=== PATIENT | female | born 1935 | race African-American/Black ===

== ENCOUNTER 2017-02-26 03:03 | Emergency (ER) | payer MEDICARE, MEDICAID ==
[~2017-02-26] VITALS: Ht 167.6 cm; Wt 59.0 kg
[~2017-02-26 03:03] MED LIST: AMLO10TA80; CLON0.1T14 PO; Capsaicin TOP
[2017-02-26] MEDS ORDERED: ACETAMINOPHEN 325MG TABLET PO ONE (03:30)
[2017-02-26] MEDS ORDERED: IBUPROFEN 600MG TABLET PO ONE (04:45)
[2017-02-26 06:31] VITALS: BP 100/66
== END 2017-02-26 07:04 | disposition home or self-care (01) ==
LOC: ER 03:10
DX: M25.532 Pain in left wrist (principal); M79.602 Pain in left arm; I10 Essential (primary) hypertension; R44.2 Other hallucinations; W18.39XA Other fall on same level, initial encounter; Y93.89 Activity, other specified; Y92.89 Other specified places as the place of occurrence of the external cause; Y99.8 Other external cause status; Z98.890 Other specified postprocedural states
CPT/HCPCS: 29125; 70450; 72125; 73030; 73060; 73110; 93005; 99284

== ENCOUNTER 2017-08-07 06:32 | Observation (INO) | payer MEDICARE, MEDICAID ==
[~2017-08-07] VITALS: Ht 162.6 cm; Wt 66.8 kg
[~2017-08-07 06:32] MED LIST changes: -AMLO10TA80; +AMLO10TA80 PO; -CLON0.1T14 PO; +CLON0.2T PO; +IBUP-2030 PO
[2017-08-07] MEDS ORDERED: ASPIRIN 81MG TABLET PO STA (07:00)
[2017-08-07] MEDS ORDERED: ONDANSETRON HCL 4MG/2ML VIAL IV STA (07:00)
[2017-08-07] MEDS: NITROGLYCERIN 0.4MG TABLET SL SL PRN ×3 (07:17→07:32)
[2017-08-07 07:29] LABS: BASOPHILS % 0.6 % (0.0-2.0); EOSINOPHILS % 4.3 % (0.0-5.0); HEMATOCRIT. 30.3 % (36.0-48.0); HEMOGLOBIN. 10.3 g/dL (12.0-16.0); LYMPHOCYTES % 44.6 % (20.0-50.0); MEAN CORPUSCULAR HEMOGLOBIN 29.9 pg (28.0-32.0); MEAN CORPUSCULAR VOLUME 87.9 fL (81.0-99.0); MEAN PLATELET VOLUME 8.3 fl (7.4-10.4); MONOCYTES % 10.4 % (2.0-8.0); NEUTROPHILS % 40.1 % (40.0-76.0); PLATELET 215 x1000/uL (130-400); RED BLOOD CELL COUNT 3.45 mill/uL (4.2-5.4); RED CELL DISTRIBUTION WIDTH 15.3 % (11.6-14.6)
[2017-08-07 07:36] LABS: PROTHROMBIN TIME 10.5 sec (9.4-11.6)
[2017-08-07 07:43] LABS: CARBON DIOXIDE 27 mEq/L (21-32); CHLORIDE 99 mEq/L (98-107); TROPONIN I < 0.02 ng/mL (0.00-0.04)
[2017-08-07] MEDS ORDERED: ACETAMINOPHEN 325MG TABLET PO PRN (09:15)
[2017-08-07] MEDS ORDERED: IBUPROFEN 800MG TABLET PO SCH (09:15)
[2017-08-07 12:00] VITALS: BP 172/80
[2017-08-07] MEDS ORDERED: IBUPROFEN 800MG TABLET PO PRN (12:45)
[2017-08-07] MEDS ORDERED: ENOXAPARIN 40MG/0.4ML SYR SUBCUT SCH (13:00)
[2017-08-07 13:52] VITALS: BP 172/80
[2017-08-07] MEDS ORDERED: SODIUM CHLORIDE 0.9% INJ 3ML FLUSH IVF SCH (14:00)
[2017-08-07] MEDS ORDERED: CLONIDINE 0.2MG TABLET PO SCH (14:00)
[2017-08-07 14:30] VITALS: BP 190/83
[2017-08-07 14:34] VITALS: BP 191/91
[2017-08-07] MEDS ORDERED: AMLODIPINE 10MG TABLET PO SCH (14:45)
[2017-08-07] MEDS ORDERED: HYDRALAZINE 20MG/ML VIAL IV NR (15:20)
[2017-08-07] MEDS ORDERED: CLONIDINE 0.2MG TABLET PO NR (15:23)
[2017-08-07 15:27] VITALS: BP 193/97
[2017-08-07 15:50] VITALS: BP 191/91
[2017-08-08] MEDS ORDERED: AMLODIPINE 10MG TABLET PO SCH (09:00)
== END 2017-08-07 16:19 | disposition home or self-care (01) ==
LOC: ER 07:53 → EDBEDREQ 09:14 → ENRESERV 11:06 → 5WST 11:17 → INTOOBSV 11:17
PROVIDERS: ADMIT Ophthalmology; ATTEND Ophthalmology
DX: R07.89 Other chest pain (principal); I10 Essential (primary) hypertension; K21.9 Gastro-esophageal reflux disease without esophagitis; M19.90 Unspecified osteoarthritis, unspecified site; H40.9 Unspecified glaucoma; R06.02 Shortness of breath; R11.0 Nausea
CPT/HCPCS: 36415; 71010; 80053; 80061; 83605; 83690; 83880; 84484; 85025; 85610; 85730; 93005; 96372; 96374; 99285; G0378; J1650; J2405

== ENCOUNTER 2017-12-23 17:18 | Emergency (ER) | payer MEDICARE, MEDICAID ==
[~2017-12-23] VITALS: Ht 167.6 cm; Wt 52.0 kg
[2017-12-23] MEDS ORDERED: ONDANSETRON HCL 4MG/2ML VIAL IV STA (18:00)
[2017-12-23] MEDS ORDERED: MORPHINE SULFATE 4 MG/ML CPJ (NOT FOR IM USE) IV STA (18:00)
[2017-12-23 18:50] LABS: BASOPHILS % 0.9 % (0.0-2.0); EOSINOPHILS % 0.7 % (0.0-5.0); HEMATOCRIT. 34.7 % (36.0-48.0); HEMOGLOBIN. 11.5 g/dL (12.0-16.0); LYMPHOCYTES % 22.7 % (20.0-50.0); MEAN CORPUSCULAR HEMOGLOBIN 30.3 pg (28.0-32.0); MEAN CORPUSCULAR VOLUME 91.1 fL (81.0-99.0); MEAN PLATELET VOLUME 8.3 fl (7.4-10.4); MONOCYTES % 9.6 % (2.0-8.0); NEUTROPHILS % 66.1 % (40.0-76.0); PLATELET 245 x1000/uL (130-400); RED CELL DISTRIBUTION WIDTH 14.1 % (11.6-14.6)
[2017-12-23 18:57] LABS: PROTHROMBIN TIME 10.7 sec (9.4-11.6)
[2017-12-23 19:01] LABS: CHLORIDE 103 mEq/L (98-107)
[2017-12-23 19:08] LABS: TROPONIN I 0.08 ng/mL (0.00-0.04)
[2017-12-23 21:33] LABS: CLARITY URINE CLEAR (CLEAR); COLOR URINE YELLOW (YELLOW); KETONES URINE NEGATIVE (NEGATIVE); LEUKOCYTE ESTERASE URINE 1+ (NEGATIVE); NITRITE URINE NEGATIVE (NEGATIVE); OCCULT BLOOD URINE NEGATIVE (NEGATIVE); PH URINE 5.5 (4.5-8.0); PROTEIN URINE NEGATIVE (NEGATIVE); UROBILINOGEN URINE 0.2 E.U./dL (0.2-1.0)
[2017-12-23] MEDS ORDERED: HYDRALAZINE 20MG/ML VIAL IV NR (23:00)
[2017-12-24 00:09] VITALS: BP 159/101
== END 2017-12-24 00:13 | disposition home or self-care (01) ==
LOC: ER 18:00
DX: M54.2 Cervicalgia (principal); N39.0 Urinary tract infection, site not specified; M25.511 Pain in right shoulder; M25.562 Pain in left knee; M54.9 Dorsalgia, unspecified; E78.00 Pure hypercholesterolemia, unspecified; I10 Essential (primary) hypertension; M19.90 Unspecified osteoarthritis, unspecified site; R51 Headache; Z79.899 Other long term (current) drug therapy
CPT/HCPCS: 36415; 70450; 71045; 72125; 73030; 73562; 80053; 81003; 83880; 84484; 85025; 85610; 93005; 96374; 96375; 99285; J0360; J2270; J2405

== ENCOUNTER 2019-08-23 19:33 | Inpatient (IN) | payer MEDICARE, MEDICAID ==
[~2019-08-23] VITALS: Ht 167.6 cm; Wt 63.0 kg
[2019-08-23] MEDS ORDERED: ONDANSETRON HCL 4MG/2ML INJ IV STA (21:30)
[2019-08-23] MEDS ORDERED: SODIUM CHLORIDE 0.9% 1,000 ML IV ONE (21:30)
[2019-08-23 23:10] LABS: HEMATOCRIT. 38.7 % (36.0-48.0); MEAN CORPUSCULAR HEMOGLOBIN 30.8 pg (28.0-32.0); MEAN PLATELET VOLUME 8.8 fl (7.4-10.4); PLATELET 242 x1000/uL (130-400); RED BLOOD CELL COUNT 4.21 mill/uL (4.2-5.4); RED CELL DISTRIBUTION WIDTH 13.3 % (11.6-14.6)
[2019-08-23 23:14] LABS: CHLORIDE 102 mEq/L (98-107)
[2019-08-23 23:22] LABS: PLATELET ESTIMATE NORMAL
[2019-08-24] MEDS ORDERED: AZITHROMYCIN 500 MG in DEXT 5% WATER 250 ML IV SCH ×2
[2019-08-24] MEDS ORDERED: CEFTRIAXONE 1 G PREMIX 50 ML IV SCH ×2 (00:30)
[2019-08-24] MEDS ORDERED: SODIUM CHLORIDE 0.9% 1000ML BAG (SEPSIS BOLUS) IV ONE (03:45)
[2019-08-24] MEDS ORDERED: MORPHINE SULFATE 4 MG/ML CPJ (NOT FOR IM USE) IV ONE ×2 (03:45→05:45)
[2019-08-24] MEDS ORDERED: FUROSEMIDE 40MG/4ML VIAL IVP ONE (06:30)
[2019-08-24] MEDS ORDERED: LABETALOL 5MG/ML SYR 20 MG/4 ML SYRINGE IV ONE (08:30)
[2019-08-24 10:00] VITALS: BP 154/97
[2019-08-24 12:00] VITALS: BP 175/103
[2019-08-24] MEDS ORDERED: INFLUENZA VIRUS VACCINE(AFLURIA) 0.5ML SYR IM ONE (12:00)
[2019-08-24] MEDS ORDERED: NA PHOS,M-B/NA PHOS,DI-BA ENEMA 118ML PR PRN (12:45)
[2019-08-24] MEDS ORDERED: DOCUSATE SODIUM 100MG CAPSULE PO PRN (12:45)
[2019-08-24] MEDS ORDERED: DEXTROSE 50% WATER 50ML SYRINGE IV PRN (12:45)
[2019-08-24] MEDS ORDERED: CLONIDINE 0.1MG TABLET PO PRN (12:45)
[2019-08-24] MEDS ORDERED: ACETAMINOPHEN 325MG TABLET PO PRN (12:45)
[2019-08-24] MEDS ORDERED: ACETAMINOPHEN 650MG SUPP PR PRN (12:45)
[2019-08-24] MEDS ORDERED: GUAIFENESIN 200MG/10ML SUGAR FREE UDC PO PRN (12:45)
[2019-08-24] MEDS ORDERED: ONDANSETRON HCL 4MG/2ML INJ IV PRN (12:45)
[2019-08-24] MEDS ORDERED: LORAZEPAM 0.5MG TABLET PO PRN (12:45)
[2019-08-24] MEDS ORDERED: MAGNESIUM/ALUMINUM HYDROXIDE/SIMETHICONE 30ML UDC PO PRN (12:45)
[2019-08-24] MEDS ORDERED: IPRATROPIUM/ALBUTEROL 0.5-3(2.5)MG/3ML NEB NEB PRN (12:45)
[2019-08-24] MEDS ORDERED: DIPHENHYDRAMINE 50MG/ML VIAL IV PRN (12:45)
[2019-08-24] MEDS: BLOOD SUGAR DIAGNOSTIC STRIP TEST SCH ×3 (13:01→21:10)
[2019-08-24] MEDS: INSULIN LISPRO 100 UNITS/ML SUBCUT SCH ×3 (13:02→21:00)
[2019-08-24] MEDS: HYDRALAZINE 20MG/ML VIAL IV PRN ×2 (13:17→21:10)
[2019-08-24 14:25] LABS: *AMPHETAMINES SCREEN URINE NEGATIVE (NEGATIVE); *BARBITURATES SCREEN URINE NEGATIVE (NEGATIVE); *BENZODIAZEPINES SCREEN URINE NEGATIVE (NEGATIVE); *COCAINE SCREEN URINE NEGATIVE (NEGATIVE); CANNABINOID URINE SCREEN NEGATIVE (NEGATIVE); PHENCYCLIDINE URINE SCREEN NEGATIVE (NEGATIVE)
[2019-08-24 14:26] LABS: METHADONE URINE SCREEN NEGATIVE (NEGATIVE); OPIATES URINE SCREEN NEGATIVE (NEGATIVE)
[2019-08-24 15:00] LABS: BG BASE EXCESS -2.5 mmol/L (-2.0-2.0); BG CARBOXYHEMOGLOBIN 0.6 % (0.5-1.5); BG DEOXYHEMOGLOBIN 9.5 % (0.0-5.0); BG HCO3 ACT 21.3 mmol/L (22.0-26.0); BG METHEMOGLOBIN 0.1 % (0.0-1.5); BG OXYGEN SATURATION 90.4 % (92.0-98.5); BG OXYHEMOGLOBIN 89.8 % (94.0-97.0); BG PCO2 33.6 mmHg (35.0-45.0); BG PH 7.419 (7.350-7.450); BG PO2 56.5 mmHg (75.0-100.0); BG SAMPLE SITE RIGHT BRACHIAL; BG TOTAL HEMOGLOBIN 13.1 g/dL (12.0-18.0); BG VENT MODE ROOM AIR
[2019-08-24] MEDS ORDERED: POTASSIUM CHLORIDE INJ 40 MEQ in DEXT 5% WATER 250 ML IV SCH (15:00)
[2019-08-24] MEDS ORDERED: FAMOTIDINE 20MG/2ML VIAL IV SCH (15:30)
[2019-08-24 16:00] VITALS: BP 155/84
[2019-08-24 16:31] LABS: CLARITY URINE CLEAR (CLEAR); COLOR URINE YELLOW (YELLOW); KETONES URINE NEGATIVE (NEGATIVE); LEUKOCYTE ESTERASE URINE NEGATIVE (NEGATIVE); NITRITE URINE NEGATIVE (NEGATIVE); OCCULT BLOOD URINE 3+ (NEGATIVE); PROTEIN URINE TRACE (NEGATIVE); SPECIFIC GRAVITY URINE 1.011 (1.005-1.030); UROBILINOGEN URINE 0.2 E.U./dL (0.2-1.0)
[2019-08-24] MEDS: SODIUM CHLORIDE 0.9% 1,000 ML IV SCH (16:50)
[2019-08-24] MEDS: CEFTRIAXONE 1 G PREMIX 50 ML IV SCH (17:08)
[2019-08-24 20:00] VITALS: BP 174/89
[2019-08-24] MEDS: FAMOTIDINE 20MG/2ML VIAL IV SCH (21:10)
[2019-08-25] VITALS: BP 149/72
[2019-08-25 00:48] LABS: CREATINE KINASE MB FRACTION 2.3 ng/mL (0.5-3.6)
[2019-08-25 04:00] VITALS: BP 146/74
[2019-08-25 07:12] LABS: BASOPHILS % 0.4 % (0.0-2.0); EOSINOPHILS % 0.2 % (0.0-5.0); HEMATOCRIT. 34.5 % (36.0-48.0); HEMOGLOBIN. 11.6 g/dL (12.0-16.0); LYMPHOCYTES % 8.5 % (20.0-50.0); MEAN CORPUSCULAR HEMOGLOBIN 30.6 pg (28.0-32.0); MEAN CORPUSCULAR VOLUME 91.4 fL (81.0-99.0); MEAN PLATELET VOLUME 8.6 fl (7.4-10.4); MONOCYTES % 9.8 % (2.0-8.0); NEUTROPHILS % 81.1 % (40.0-76.0); PLATELET 209 x1000/uL (130-400); RED BLOOD CELL COUNT 3.78 mill/uL (4.2-5.4); RED CELL DISTRIBUTION WIDTH 13.2 % (11.6-14.6)
[2019-08-25] MEDS: BLOOD SUGAR DIAGNOSTIC STRIP TEST SCH ×4 (07:40→21:32)
[2019-08-25 07:43] LABS: T4 FREE 1.31 ng/dL (0.76-1.46)
[2019-08-25 07:44] LABS: HDL CHOLESTEROL 58 mg/dL (40-59)
[2019-08-25 07:48] LABS: LDL CHOLESTEROL 48 mg/dL (5-100)
[2019-08-25 08:00] VITALS: BP 168/73
[2019-08-25] MEDS: INSULIN LISPRO 100 UNITS/ML SUBCUT SCH ×4 (08:10→21:00)
[2019-08-25 09:03] LABS: CHLORIDE 108 mEq/L (98-107)
[2019-08-25] MEDS: HYDRALAZINE 20MG/ML VIAL IV PRN (10:06)
[2019-08-25] MEDS: CEFTRIAXONE 1 G PREMIX 50 ML IV SCH (10:36)
[2019-08-25] MEDS: SODIUM CHLORIDE 0.9% 1,000 ML IV SCH (10:45)
[2019-08-25 12:00] VITALS: BP 141/71
[2019-08-25 16:00] VITALS: BP 147/63
[2019-08-25 20:00] VITALS: BP 175/80
[2019-08-25] MEDS: FAMOTIDINE 20MG/2ML VIAL IV SCH (20:24)
[2019-08-26] VITALS: BP 179/85
[2019-08-26 04:00] VITALS: BP 183/85
[2019-08-26] MEDS: SODIUM CHLORIDE 0.9% 1,000 ML IV SCH (06:02)
[2019-08-26 08:00] VITALS: BP 218/112
[2019-08-26] MEDS: INSULIN LISPRO 100 UNITS/ML SUBCUT SCH ×2 (08:03→13:10)
[2019-08-26] MEDS: BLOOD SUGAR DIAGNOSTIC STRIP TEST SCH ×2 (08:03→13:38)
[2019-08-26 10:01] VITALS: BP 164/108
[2019-08-26] MEDS: CEFTRIAXONE 1 G PREMIX 50 ML IV SCH (10:18)
[2019-08-26 12:00] VITALS: BP 179/94
[2019-08-26 12:39] LABS: BASOPHILS % 0.6 % (0.0-2.0); CHLORIDE 106 mEq/L (98-107); EOSINOPHILS % 1.7 % (0.0-5.0); HEMATOCRIT. 32.4 % (36.0-48.0); HEMOGLOBIN. 10.8 g/dL (12.0-16.0); LYMPHOCYTES % 15.5 % (20.0-50.0); MEAN CORPUSCULAR HEMOGLOBIN 30.6 pg (28.0-32.0); MEAN CORPUSCULAR VOLUME 91.6 fL (81.0-99.0); MEAN PLATELET VOLUME 8.4 fl (7.4-10.4); MONOCYTES % 10.7 % (2.0-8.0); NEUTROPHILS % 71.5 % (40.0-76.0); PLATELET 246 x1000/uL (130-400); RED BLOOD CELL COUNT 3.54 mill/uL (4.2-5.4); RED CELL DISTRIBUTION WIDTH 13.1 % (11.6-14.6)
[2019-08-26] MEDS: AMLODIPINE 10MG TABLET PO NR ×2 (12:45→14:06)
[2019-08-26] MEDS: POTASSIUM CHLORIDE 20MEQ/PACKET PO SCH ×2 (13:30→14:17)
[2019-08-26] MEDS ORDERED: MAGNESIUM 2 G PREMIX 50 ML IV SCH (14:00)
[2019-08-26] MEDS ORDERED: POTASSIUM CHLORIDE 20MEQ/PACKET PO SCH (14:30)
[2019-08-26] MEDS: HYDRALAZINE 20MG/ML VIAL IV PRN (15:42)
[2019-08-26 16:00] VITALS: BP 179/94
== END 2019-08-26 17:20 | disposition home health service (06) | DRG 871 ==
LOC: ER 19:33 → EDBEDREQ 08-24 08:22 → 7WST 08-24 08:27 → EDBEDREQ 08-24 08:29 → ENRESERV 08-24 08:50 → SUPCPDRO 08-24 10:34
PROVIDERS: ADMIT Internal Medicine; ATTEND Internal Medicine
DX: A41.9 Sepsis, unspecified organism (principal); G93.41 Metabolic encephalopathy; D68.59 Other primary thrombophilia; E87.1 Hypo-osmolality and hyponatremia; N39.0 Urinary tract infection, site not specified; E11.9 Type 2 diabetes mellitus without complications; E78.00 Pure hypercholesterolemia, unspecified; E87.6 Hypokalemia; F03.90 Unspecified dementia, unspecified severity, without behavioral disturbance, psychotic disturbance, mood disturbance, and anxiety; M19.90 Unspecified osteoarthritis, unspecified site; E80.6 Other disorders of bilirubin metabolism; I16.0 Hypertensive urgency; I11.0 Hypertensive heart disease with heart failure; R07.89 Other chest pain; I25.10 Atherosclerotic heart disease of native coronary artery without angina pectoris; I50.9 Heart failure, unspecified; R62.7 Adult failure to thrive; Z74.01 Bed confinement status; Z68.22 Body mass index [BMI] 22.0-22.9, adult; Z79.84 Long term (current) use of oral hypoglycemic drugs
CPT/HCPCS: 36415; 36600; 71045; 74176; 76700; 80061; 80305; 81003; 82140; 82375; 82378; 82550; 82553; 82805; 82962; 83036; 83605; 83880; 84439; 84443; 84484; 90686; 92610; 93005; 93970; 96365; 96366; 96367; 96375; 97162; 99291; C1893; J0360; J0456; J0696; J1940; J2270; J2405; J3475; J3480; J3490; J7030; J7060; A4315